=== PATIENT | female | born 1980 | race Caucasian/White ===

== ENCOUNTER 2017-05-22 10:09 | Day surgery (SDC) | payer MEDICAID ==
[~2017-05-22 10:09] MED LIST: CEFAZOLIN 1 GM/50 ML (PMX) 50 ML IVPB; SOD CHLORIDE 0.9% 1,000 ML IV
[2017-05-22] MEDS ORDERED: PROPOFOL 100 ML (15:48)
[2017-05-22] MEDS ORDERED: ROCURONIUM 50 MG INJ (15:48)
[2017-05-22] MEDS ORDERED: ALBUTEROL 0.083% (NEB) 2.5 MG/3 ML AMP HHN (16:00)
[2017-05-22] MEDS ORDERED: HYDROmorphONE (0.2 MG/ML) 10ML SYG IV ×3 (16:00)
[2017-05-22] MEDS ORDERED: MIDAZOLAM 1 MG/ML 2 ML INJ IV (16:00)
[2017-05-22] MEDS ORDERED: FENTAnyl 50 MCG/ML VIAL IV ×2 (16:00)
[2017-05-22] MEDS ORDERED: MEPERIDINE 25 MG INJ IV (16:00)
[2017-05-22] MEDS ORDERED: hydrALAzine 20 MG INJ IV (16:00)
[2017-05-22] MEDS ORDERED: KETOROLAC 30 MG INJ IV (16:00)
[2017-05-22] MEDS ORDERED: METOCLOPRAMIDE 10 MG INJ IV (16:00)
[2017-05-22] MEDS ORDERED: LABETALOL HCL 20MG INJ IV (16:00)
[2017-05-22] MEDS ORDERED: EPHEDrine SULFATE 50 MG/5 ML SYG IV (16:00)
[2017-05-22] MEDS ORDERED: DIPHENHYDRAMINE 50 MG INJ IV (16:00)
[2017-05-22] MEDS ORDERED: OXYCODONE/ACETAMINOPHEN (5/325) TAB PO ×2 (16:00)
[2017-05-22] MEDS ORDERED: ONDANSETRON 4 MG INJ IV (16:00)
[2017-05-22] MEDS ORDERED: CEFAZOLIN 1 GM INJ (16:03)
[2017-05-22] MEDS ORDERED: DEXAMETHASONE 4 MG/ML 1 ML INJ (16:03)
[2017-05-22] MEDS ORDERED: SUGAMMADEX SODIUM 200 MG/2 ML VIAL IV (16:25)
[2017-05-22] MEDS ORDERED: ONDANSETRON 4 MG INJ (16:25)
[2017-05-22] MEDS: FENTAnyl 50 MCG/ML VIAL IV (17:44)
== END 2017-05-22 18:14 | disposition home or self-care (01) ==
LOC: SDS 10:09
DX: N64.1 Fat necrosis of breast (principal)
CPT/HCPCS: 19120; 87070; 87075; 88307

== ENCOUNTER 2017-05-24 01:39 | Emergency (ER) | payer MEDICAID | END 2017-05-24 04:29 | disposition home or self-care (01) | LOC: FTE 01:39 | DX: Z48.01 Encounter for change or removal of surgical wound dressing (principal) | CPT/HCPCS: 99281; Z7502 ==